=== PATIENT | male | born 1980 | race Hispanic/Latino ===

== ENCOUNTER 2022-03-11 08:55 | Emergency (ER) | payer OTHER, MEDICAID, SELFPAY ==
[2022-03-11] VITALS (8 sets, daily range): BP systolic 178–209; BP diastolic 99–123; PULSE 77–110; RESP 10–18; TEMP 37.2; O2SAT 93–98; BMI 30.4
--- NOTE | 2022-03-11 09:04 | ED_ITS ---
HPI - SOB/Dyspnea General Chief Complaint: Shortness of Breath/Dyspnea Stated Complaint: SOB- steroids/antibiotics not working. x 3 weeks Time Seen by Provider: 03/11/22 08:57 History of Present Illness HPI Narrative: 42-year-old male smoker with no known chronic medical problems presents with ongoing wheeze, cough and shortness of breath. He had COVID earlier in the year but states he had a full resolution of symptoms which were mild at worst prior to developing the symptoms that brought him here today. 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 He has been to the walk-in clinic twice and is completed. Steroids, frequent use of bronchodilators as well as a course of antibiotics and has no improvement. He denies fever chills. He has had no runny nose or sore throat. He denies chest pain, recent travel, history of blood clot or known cancer. He denies nausea, vomiting or diarrhea. Patient has been taking OTC Bronkaid (Ephedrine) Related Data Previous Rx's Medication Instructions Recorded albuterol sulfate 90 mcg/actuation 2 puff INHALATION Q4-6H PRN #8.5 g 03/09/22 aerosol inhaler azithromycin 250 mg tablet See Rx Instructions PO .COMPLEX #6 03/09/22 tab inhalational spacing device #1 ea 03/09/22 ([facility]) prednisone 50 mg tablet 50 mg PO QAM 5 Days #5 tab 03/09/22 albuterol sulfate 90 mcg/actuation 2 puff INHALATION Q4H PRN #1 each 03/11/22 breath activated powder inhaler amlodipine 5 mg tablet 5 mg PO DAILY #30 tab 03/11/22 benzonatate 200 mg capsule 200 mg PO BID PRN #20 cap 03/11/22 prednisone 10 mg tablet See Rx Instructions .ROUTE 03/11/22 .COMPLEX #30 tab Allergies Allergy/AdvReac Type Severity Reaction Status Date / Time No Known Allergies Allergy Verified 03/11/22 10:13 Review of Systems Review of Systems Narrative: GENERAL: See HPI HEENT: See HPI RESPIRATORY: See HPI CARDIOVASCULAR: Denies chest pain, palpitations, orthopnea, edema, GASTROINTESTINAL: Denies nausea, vomiting, abdominal pain, diarrhea, constipation, melena. : Denies dysuria, frequency, incontinence, hematuria, urinary retention. MUSCULOSKELETAL: denies weakness, joint pain, or bony pain SKIN: Denies rash, skin lesions, or other NEUROLOGIC: Denies weakness, headache, numbness, change in speech, confusion, seizures, incoordination. PSYCHIATRIC: No concerning psychosocial issues. 12 point review of systems is negative except for those stated above Patient History Social History Smoking Status: Current every day smoker Smoking Status: Current every day smoker Exam Narrative Exam Narrative: GENERAL: [42 year old patient appears stated age. Well-developed patient, in mild distress. HEAD: Atraumatic. Normocephalic. EYES: Pupils equal round and reactive. Extraocular motions intact. No scleral icterus. No injection or drainage. ENT: Nose without bleeding, purulent drainage. Throat without erythema, tonsillar hypertrophy or exudate. Airway patent. NECK: Trachea midline. Non tender CARDIOVASCULAR: Tachycardic but regular rhythm without murmurs, gallops, or rubs. RESPIRATORY: Expiratory wheeze in all [place], no rales or rhonchi GASTROINTESTINAL: Abdomen soft, non-tender, nondistended. EXTREMITIES: No edema or joint tenderness. BACK: Nontender without deformity or crepitance. No flank tenderness. NEURO: AOx3. SKIN: No rash or erythema of visible areas Initial Vital Signs Initial Vital Signs: Vital Signs Temperature 98.9 F 03/11/22 09:13 Pulse Rate 110 H 03/11/22 09:13 Respiratory Rate 16 03/11/22 09:13 Blood Pressure 189/123 H 03/11/22 09:13 Pulse Oximetry 94 03/11/22 09:13 Course Orders Ordered: Discontinued Medications Albuterol (Albuterol 2.5 Mg/3 Ml Neb (Adult)) 5 mg INH NOW ONE Stop: 03/11/22 10:18 Last Admin: 03/11/22 10:20 Dose: 5 mg Documented by: CTR.[email or web address] Albuterol/Ipratropium (Albuterol/Ipratropium 3 Ml Ampul) 3 ml INH NOW ONE Stop: 03/11/22 10:07 Last Admin: 03/11/22 10:12 Dose: 3 ml Documented by: CTR.[email or web address] Sodium Chloride (Normal Saline 0.9%) 1,000 mls @ 1,000 mls/hr IV BOLUS ONE Stop: 03/11/22 10:41 Last Infusion: 03/11/22 10:56 Dose: 0 mls/hr Documented by: Admin: 03/11/22 09:49 Dose: 1,000 mls/hr Documented by: PAVEL Methylprednisolone (Methylprednisolone 125 Mg/2 Ml Vial) 125 mg IV NOW ONE Stop: 03/11/22 09:43 Last Admin: 03/11/22 09:49 Dose: 125 mg Documented by: PAVEL Reevaluation(s) Reevaluation #1: significant improvement after above-stated therapies. Patient does not have a spacer at home, RT to provide Vital Signs Vital signs: Vital Signs - 8 hr 03/11/22 09:13 03/11/22 09:25 03/11/22 09:30 Temperature 98.9 F Pulse Rate 110 H 98 H 91 H Respiratory Rate 16 13 12 Blood Pressure 189/123 H Pulse Oximetry 94 95 93 03/11/22 09:51 03/11/22 10:00 03/11/22 10:12 Temperature Pulse Rate 77 81 Respiratory Rate 14 18 Blood Pressure 209/99 H 189/102 H Pulse Oximetry 94 93 95 03/11/22 10:21 03/11/22 10:30 Temperature Pulse Rate 79 Respiratory Rate 10 L Blood Pressure 178/101 H Pulse Oximetry 98 96 MDM - SOB/Dyspnea Lab Data Result diagrams: 03/11/22 09:11 03/11/22 09:11 Labs: Lab Results 03/11/22 03/11/22 03/11/22 Range/Units 09:11 09:11 09:11 WBC 8.7 (4.5-11.0) X10^3/uL RBC 5.07 (4.5-5.9) X10^6/uL Hgb 15.2 (13.5-17.5) g/dL Hct 44.6 (41-53) % MCV 88.1 (80-100) fL MCH 30.0 (26-34) PG MCHC 34.1 (30-36) % RDW 12.8 (11.6-14.8) % Plt Count 297 (150-400) X10^3/uL Neut % (Auto) 49.1 L (50-75) % Lymph % (Auto) 25.9 (25-40) % [place] % (Auto) 11.0 (3-14) % Eos % (Auto) 13.2 H (2-4) % Baso % (Auto) 0.8 (0-2) % Neut # (Auto) 4300 (4145-3314) /uL Lymph # (Auto) 2200 (5368-9789) /uL [place] # (Auto) 900 (0-900) /uL Eos # (Auto) 1100 H (0-450) /uL Baso # (Auto) 100 (0-100) /uL D-Dimer < 200 (<230) ng/mL Sodium 136 L (137-145) mmol/L Potassium 4.4 (3.4-5.1) mmol/L Chloride 106 (98-107) mmol/L Carbon Dioxide 24 (22-32) mmol/L BUN 13 (9-20) mg/dL Creatinine 0.99 (0.66-1.25) mg/dL Estimated GFR > 60 (>60) mL/min BUN/Creatinine Ratio 13.1 (6-22) Glucose 105 H (70-100) mg/dL Lactate (0.7-2.1) mmol/L Calcium 9.2 (8.4-10.2) mg/dL Magnesium 2.2 (1.6-2.3) mg/dL Total Bilirubin 0.9 (0.2-1.3) mg/dL AST 49 (17-59) IU/L ALT 62 H (<50) IU/L Alkaline Phosphatase 115 (38-126) U/L Total Creatine Kinase 139 (55-170) U/L CK-MB (CK-2) 1.90 (<2.37) ng/mL CK-MB (CK-2) Rel Index 1.4 L (1.5-5.0) % Troponin I < 0.012 (0.01-0.034) ng/mL NT-Pro-B Natriuret Pep 17 (<125) pg/mL Total Protein 7.8 (6.3-8.2) g/dL Albumin 4.4 (3.5-5.0) g/dL Globulin 3.4 (1.7-4.1) g/dL Albumin/Globulin Ratio 1.3 (1.0-2.8) Procalcitonin 0.06 (<0.5) ng/mL SARS-CoV-2 (PCR) (Negative) 03/11/22 03/11/22 Range/Units 09:11 09:35 WBC (4.5-11.0) X10^3/uL RBC (4.5-5.9) X10^6/uL Hgb (13.5-17.5) g/dL Hct (41-53) % MCV (80-100) fL MCH (26-34) PG MCHC (30-36) % RDW (11.6-14.8) % Plt Count (150-400) X10^3/uL Neut % (Auto) (50-75) % Lymph % (Auto) (25-40) % [place]go % (Auto) (3-14) % Eos % (Auto) (2-4) % Baso % (Auto) (0-2) % Neut # (Auto) (3375-7259) /uL Lymph # (Auto) (6878-0292) /uL [place]go # (Auto) (0-900) /uL Eos # (Auto) (0-450) /uL Baso # (Auto) (0-100) /uL D-Dimer (<230) ng/mL Sodium (137-145) mmol/L Potassium (3.4-5.1) mmol/L Chloride (98-107) mmol/L Carbon Dioxide (22-32) mmol/L BUN (9-20) mg/dL Creatinine (0.66-1.25) mg/dL Estimated GFR (>60) mL/min BUN/Creatinine Ratio (6-22) Glucose (70-100) mg/dL Lactate 1.2 (0.7-2.1) mmol/L Calcium (8.4-10.2) mg/dL Magnesium (1.6-2.3) mg/dL Total Bilirubin (0.2-1.3) mg/dL AST (17-59) IU/L ALT (<50) IU/L Alkaline Phosphatase (38-126) U/L Total Creatine Kinase (55-170) U/L CK-MB (CK-2) (<2.37) ng/mL CK-MB (CK-2) Rel Index (1.5-5.0) % Troponin I (0.01-0.034) ng/mL NT-Pro-B Natriuret Pep (<125) pg/mL Total Protein (6.3-8.2) g/dL Albumin (3.5-5.0) g/dL Globulin (1.7-4.1) g/dL Albumin/Globulin Ratio (1.0-2.8) Procalcitonin (<0.5) ng/mL SARS-CoV-2 (PCR) Negative (Negative) Imaging Data Chest x-ray: Radiologist's Impression: [address] [address] XRay Report Signed Patient: Matheus Roberts MR#: [id number] : 1980 Acct:[id number] Age/Sex: 42 / M Date of Service: 03/11/22 Loc: ED Accession Number: [id number] ?? Procedure: XR chest 2V Ordering Provider: Remy Forrester D.O. PROCEDURE:? XR CHEST 2V ? INDICATIONS:? SOB ? TECHNIQUE:? 2 views of the chest were acquired.? ? COMPARISON:? None. ? FINDINGS:? ? Surgical changes and devices:? None.? ? Lungs and pleura:? Lungs are clear.? No pleural effusions or pneumothorax.? ? Mediastinum:? Mediastinal contours are normal.? Heart size is normal.? ? Bones and chest wall:? No suspicious bony abnormalities.? Soft tissues appear unremarkable.? ? IMPRESSION:? No acute cardiopulmonary pathology. ? ? Dictated by: Rg Chauhan M.D. on 03/11/2022 at 9:41 ? ? Approved by: Rg Chauhan M.D. on 03/11/2022 at 9:42? MDM Narrative Medical decision making narrative: Multiple etiologies for patient's symptoms considered including: [Upper respiratory infection versus asthma exacerbation versus COPD versus CHF versus PE versus other Patient's symptoms improved over duration of stay with above-stated therapies. Findings and discharge diagnosis discussed with patient/family followed by verbalization of understanding Return precautions discussed with patient/family whom verbalize understanding. Discharge Plan Departure Patient Disposition: Home Clinical Impression: Shortness of Breath, HTN (hypertension) Instructions: DI for Cough -- Adult, DI for Shortness of Breath Activity Restrictions/Additional Instructions: *You have been diagnosed with [shortness of breath likely due to bronchospasm. As we discussed her history and physical exam are reassuring. Labs, chest x-ray and response to therapies are also quite reassuring and there is no evidence of pneumonia, COVID, blood clot. *What to do: *Please continue to take your regular medications as directed. [x] New medication prescriptions sent to your pharmacy: [ [place]] [ ] New medication written as a paper prescription [ ] No new medications given *Please follow up with your primary care provider in 2-3 days, call for an appointment. Let them know you were seen in the Emergency Department and that we ask that you be seen in follow up. We will electronically transmit a record of today's note if your PCP is in our system *If you do not have a primary care provider please contact the [facility] Resource line at [phone]. They will ask some questions about your medical history and help get you set up with a doctor in the community. *Return to Emergency Department if you should have any new, worsening or concerning symptoms, such as [fever greater than 101 F, shaking chills, worsening pain, persistent vomiting or other bothersome symptoms] Prescriptions: New prednisone 10 mg tablet See Rx Instructions .ROUTE .COMPLEX Qty: 30 0RF Rx Instructions: Day 1,2,3: 40mg PO Daily Day 4,5,6: 30mg PO Daily Day 7,8,9: 20mg PO Daily Day 10,11,12: 10mg PO Daily #30 benzonatate 200 mg capsule 200 mg PO BID PRN (Reason: cough) Qty: 20 0RF albuterol sulfate 90 mcg/actuation aerosol powdr breath activated 2 puff INHALATION Q4H PRN (Reason: shortness of breath or wheezing) Qty: 1 0RF Rx Instructions: administer with spacer amlodipine 5 mg tablet 5 mg PO DAILY Qty: 30 0RF No [facility] Spacer See Rx Instructions .MEDSUPPLY Qty: 1 0RF Rx Instructions: Please use with albuterol inhaler. prednisone 50 mg tablet 50 mg PO QAM 5 Days Qty: 5 0RF azithromycin 250 mg tablet See Rx Instructions PO .COMPLEX Qty: 6 0RF Rx Instructions: Take 2 tablets (500mg) by mouth today (day 1), then 1 tablet (250mg) by mouth for 4 days (days 2-5). Finish all of this medication. albuterol sulfate 90 mcg/actuation HFA aerosol inhaler 2 puff inhalation Q4-6H PRN (Reason: shortness of breath or wheezing) Qty: 8.5 2RF
--- NOTE | 2022-03-11 09:06 | DI.RAD.S_ITS ---
PROCEDURE: XR CHEST 2V INDICATIONS: SOB TECHNIQUE: 2 views of the chest were acquired. COMPARISON: None. FINDINGS: Surgical changes and devices: None. Lungs and pleura: Lungs are clear. No pleural effusions or pneumothorax. Mediastinum: Mediastinal contours are normal. Heart size is normal. Bones and chest wall: No suspicious bony abnormalities. Soft tissues appear unremarkable. IMPRESSION: No acute cardiopulmonary pathology. Dictated by: Rg Chauhan M.D. on 03/11/2022 at 9:41 Approved by: Rg Chauhan M.D. on 03/11/2022 at 9:42
[2022-03-11 09:21] LABS: Add Manual Diff / Slide Review NO; Basophils Absolute Auto 100 /uL (0-100); Basophils Percent Auto 0.8 % (0-2); Eosinophils Absolute Auto 1100 /uL (0-450); Eosinophils Percent Auto 13.2 % (2-4); Hematocrit 44.6 % (41-53); Hemoglobin 15.2 g/dL (13.5-17.5); Lymphocytes Absolute Auto 2200 /uL (1100-4500); Lymphocytes Percent Auto 25.9 % (25-40); Mean Corpuscular HGB Conc 34.1 % (30-36); Mean Corpuscular Volume 88.1 fL (80-100); Monocytes Absolute Auto 900 /uL (0-900); Neutrophils Absolute Auto 4300 /uL (1500-7000); Neutrophils Percent Auto 49.1 % (50-75); Platelet Count 297 X10^3/uL (150-400); Red Blood Cell Count 5.07 X10^6/uL (4.5-5.9); Red Cell Distribution Width 12.8 % (11.6-14.8); White Blood Cell Count 8.7 X10^3/uL (4.5-11.0)
[2022-03-11 09:32] LABS: Lactate (Lactic Acid) 1.2 mmol/L (0.7-2.1)
[2022-03-11 09:36] LABS: Alanine Aminotransferase 62 IU/L (<50); Albumin 4.4 g/dL (3.5-5.0); Albumin Globulin Ratio 1.3 (1.0-2.8); Alkaline Phosphatase 115 U/L (38-126); Aspartate Aminotransferase 49 IU/L (17-59); BUN Creatinine Ratio 13.1 (6-22); Bilirubin Total 0.9 mg/dL (0.2-1.3); Blood Urea Nitrogen 13 mg/dL (9-20); Calcium 9.2 mg/dL (8.4-10.2); Carbon Dioxide 24 mmol/L (22-32); Chloride 106 mmol/L (98-107); Creatine Kinase 139 U/L (55-170); Estimated Glomerular Filt Rate > 60 mL/min (>60); Globulin 3.4 g/dL (1.7-4.1); Glucose 105 mg/dL (70-100); HEMOLYSIS < 15 (0-50); Magnesium 2.2 mg/dL (1.6-2.3); Potassium 4.4 mmol/L (3.4-5.1); Sodium 136 mmol/L (137-145); Total Protein 7.8 g/dL (6.3-8.2)
[2022-03-11 09:44] LABS: D Dimer < 200 ng/mL (<230)
[2022-03-11 09:48] LABS: NT-proBNP (BNP-Adult 18+) 17 pg/mL (<125); Troponin I < 0.012 ng/mL (0.01-0.034)
[2022-03-11] MEDS: SODIUM CHLORIDE 0.9% 1,000 ML 1000 ML IV (09:49)
[2022-03-11] MEDS: methylPREDNISolone 125 MG/2 ML VIAL IV (09:49)
[2022-03-11 09:50] LABS: CKMB % Relative Index 1.4 % (1.5-5.0)
[2022-03-11 09:52] LABS: Procalcitonin 0.06 ng/mL (<0.5)
[2022-03-11 09:55] LABS: COVID19 -Nasal RAPID Negative (Negative)
[2022-03-11] MEDS: ALBUTEROL/IPRATROPIUM 3 ML AMPUL INH (10:12)
[2022-03-11] MEDS: ALBUTEROL 2.5 MG/3 ML NEB (ADULT) 5 MG INH (10:20)
== END 2022-03-11 11:23 | disposition home or self-care (01) ==
PROVIDERS: Emergency Provider Emergency Medicine
DX: R06.02 Shortness of breath (principal); I10 Essential (primary) hypertension; Z20.822 Contact with and (suspected) exposure to COVID-19
CPT/HCPCS: 36415; 71046; 80053; 82550; 82553; 83605; 83735; 83880; 84145; 84484; 85025; 85379; 87635; 93005; 94640; 96374; 99284; C9803; J2930; J7613

== ENCOUNTER 2022-05-01 23:49 | Emergency (ER) | payer OTHER, MEDICAID, SELFPAY ==
[2022-05-02] VITALS: BP 181/109; PULSE 105; RESP 22; TEMP 36.6; O2SAT 93
--- NOTE | 2022-05-02 00:03 | DI.RAD.S_ITS ---
PROCEDURE: XR CHEST 2V INDICATIONS: shortness of breath TECHNIQUE: 2 views of the chest were acquired. COMPARISON: [facility], CR, XR CHEST 2V, 03/11/2022, 8:56. FINDINGS: Surgical changes and devices: None. Lungs and pleura: Lungs are clear. No pleural effusions or pneumothorax. Mediastinum: Mediastinal contours are normal. Heart size is normal. Bones and chest wall: No suspicious bony abnormalities. Soft tissues appear unremarkable. IMPRESSION: 1. No acute cardiopulmonary disease. Dictated by: Silvano Meyer M.D. on 05/02/2022 at 2:29 Approved by: Silvano Meyer M.D. on 05/02/2022 at 2:29
[2022-05-02 00:09] VITALS: O2SAT 98
[2022-05-02] MEDS: ALBUTEROL 2.5 MG/3 ML NEB (ADULT) 5 MG INH (00:09)
[2022-05-02 00:17] LABS: COVID19 -Nasal RAPID Negative (Negative)
[2022-05-02] MEDS: predniSONE 20 MG TABLET 60 MG PO (00:20)
[2022-05-02] MEDS: ALBUTEROL HFA PREPACK 1 BOX MISC (00:20)
--- NOTE | 2022-05-02 00:30 | PC.NURSE ---
Reports having issues since having COVID three months ago. Will get short of breath with exertion/allergen exposures. Sometimes wake up feeling like someone is choking me. Has been trying to get primary care set up to help manage symptoms.
[2022-05-02 00:58] VITALS: BP 129/95; PULSE 102; O2SAT 96
--- NOTE | 2022-05-02 01:03 | ED.SOB ---
HPI - SOB/Dyspnea General Chief Complaint: Shortness of Breath/Dyspnea Stated Complaint: SOB Time Seen by Provider: 05/02/22 00:42 Source: patient Mode of arrival: Ambulatory Limitations: no limitations History of Present Illness HPI Narrative: Patient complains of shortness of breath and wheezing and cough today. Patient states has not been the same since he had COVID back in February of this year. Has had daily cough. Has had occasional episodes of dyspnea with wheezing. Was seen here last month for the same. Improved with breathing treatment. Also with steroid pack. Denies prior history of lung disease. No history of blood clots in legs or lungs. Patient is very active. Related Data Previous Rx's Medication Instructions Recorded albuterol sulfate 90 mcg/actuation 2 puff inhalation Q4-6H PRN 03/09/22 aerosol inhaler shortness of breath or wheezing #8.5 grams azithromycin 250 mg tablet See Rx Instructions PO .COMPLEX #6 03/09/22 tabs inhalational spacing device #1 ea 03/09/22 ([facility] spacer) albuterol sulfate 90 mcg/actuation 2 puff inhalation Q4H PRN 03/11/22 breath activated powder inhaler shortness of breath or wheezing #1 ea amlodipine 5 mg tablet 5 mg PO DAILY #30 tabs 03/11/22 benzonatate 200 mg capsule 200 mg PO BID PRN cough #20 caps 03/11/22 prednisone 10 mg tablet See Rx Instructions .Route 03/11/22 .COMPLEX #30 tabs methylprednisolone 4 mg tablets in See Rx Instructions PO .COMPLEX 05/02/22 a dose pack (Medrol (Angel)) #21 ea Allergies Allergy/AdvReac Type Severity Reaction Status Date / Time No Known Allergies Allergy Verified 03/11/22 10:13 Review of Systems Review of Systems Narrative: GENERAL: Denies chills, fatigue, malaise, fever, sweats. HEENT: Denies sinus pain, ear pain, sore throat RESPIRATORY: Positive for dyspnea, cough CARDIOVASCULAR: Denies chest pain, palpitations GASTROINTESTINAL: Denies nausea, vomiting, abdominal pain : Denies dysuria, frequency, hematuria MUSCULOSKELETAL: denies muscle or bony pain SKIN: Denies rash, skin lesions NEUROLOGIC: Denies weakness, numbness ROS Unobtainable: All systems reviewed & are unremarkable except as noted in HPI and below Patient History Social History Smoking Status: Current every day smoker Smoking Status: Current every day smoker alcohol intake frequency: 0-2 drinks per day Substance Use Type: does not use Exam Narrative Exam Narrative: GENERAL: in no distress, not toxic not dyspneic HEAD: Normocephalic. EYES: Pupils equal round No scleral icterus. NECK: Trachea midline. CARDIOVASCULAR: Regular rate and rhythm without murmurs RESPIRATORY: Clear to auscultation. Breath sounds equal bilaterally. No wheezes, rales, or rhonchi. Speaking full sentences. Exam was done after breathing treatment. Patient feels much better. NEURO: AOx4. SKIN: Warm and dry PSYCH: Not anxious, is cooperative Initial Vital Signs Initial Vital Signs: Vital Signs Temperature 97.8 F 05/02/22 00:00 Pulse Rate 105 H 05/02/22 00:00 Respiratory Rate 22 05/02/22 00:00 Blood Pressure 181/109 H 05/02/22 00:00 Pulse Oximetry 93 05/02/22 00:00 Oxygen Delivery Method 05/02/22 00:00 Course Course Course Narrative: No new issues during course of stay Orders Ordered: ED Orders 05/01/22 23:55 COVID19 -Nasal RAPID/Pre-Proc Stat 05/01/22 23:59 RT Consult Eval and Treat NOW 05/02/22 00:03 XR chest 2V Stat Discontinued Medications Albuterol (Albuterol 2.5 Mg/3 Ml Neb (Adult)) 5 mg INH NOW ONE Stop: 05/02/22 00:04 Last Admin: 05/02/22 00:09 Dose: 5 mg Documented By: LORENA Albuterol (Albuterol Hfa Prepack) 1 box MISC SEEINSTR ONE Stop: 05/02/22 00:19 Last Admin: 05/02/22 00:20 Dose: 1 box Documented By: LEO Prednisone (Prednisone 20 Mg Tablet) 60 mg PO NOW ONE Stop: 05/02/22 00:17 Last Admin: 05/02/22 00:20 Dose: 60 mg Documented By: LEO Prednisone (Prednisone 20 Mg Tablet) 40 mg PO NOW ONE Stop: 05/02/22 01:01 Reevaluation(s) Reevaluation #1: Patient feels much better after breathing treatments. Blood pressure improved significantly 129/95. This was similar to previous visit as well. Had high blood pressure at that time. Return precautions reviewed with him. He does desire steroid pack as it has helped him in the past. Time: 01:13 Vital Signs Vital signs: Vital Signs - 8 hr 05/02/22 00:00 05/02/22 00:09 05/02/22 00:58 Temperature 97.8 F Pulse Rate 105 H 102 H Respiratory Rate 22 Blood Pressure 181/109 H 129/95 H Pulse Oximetry 93 98 96 Oxygen Delivery Method Room Air Room Air Room Air Oxygen Flow Rate 0 MDM - SOB/Dyspnea Differential Diagnosis Differential diagnosis: Likely acute exacerbation of chronic obstructive airways disease, community acquired pneumonia, asthma with exacerbation and other (Acute bronchitis) Lab Data Labs: Lab Results 05/01/22 Range/Units 23:55 SARS-CoV-2 (PCR) Negative (Negative) Imaging Data Chest x-ray: My Impression: No acute process. Unchanged from previous chest x-ray last month [facility] Narrative Medical decision making narrative: Appropriate for discharge home. Blood pressure improved at time of discharge. 129/95 after breathing treatment. 96% room air. Clear lung sounds. Tachycardia likely pre arrival due to exacerbation. Tachycardia at discharge likely due albuterol nebulizer. Return precautions reviewed patient. Not toxic discharge. Patient did not want wait for results of x-ray. Primary care referral given. Discharge Plan Departure Patient Disposition: Home Clinical Impression: Chronic dyspnea, Bronchitis Instructions: DI for Cough -- Adult, DI for Acute Bronchitis Activity Restrictions/Additional Instructions: See family doctor in a week for recheck. Call provided primary care referral phone number to establish family doctor. Call [phone]. Use provided inhaler 2 puffs every 4 hours as needed for cough or wheezing. Your symptoms are likely lingering from your COVID infections earlier this year. Do not smoke cigarettes. Return if worse if any questions or concerns. Continue steroid pack tomorrow. Prescriptions: New methylprednisolone [Medrol (Angel)] 4 mg tablets,dose pack See Rx Instructions .ROUTE .COMPLEX Qty: 21 0RF Rx Instructions: orally per package directions No Action (DME) Rosalva [facility] Spacer See Rx Instructions .MEDSUPPLY Qty: 1 0RF Rx Instructions: Please use with albuterol inhaler. azithromycin 250 mg tablet See Rx Instructions PO .COMPLEX Qty: 6 0RF Rx Instructions: Take 2 tablets (500mg) by mouth today (day 1), then 1 tablet (250mg) by mouth for 4 days (days 2-5). Finish all of this medication. albuterol sulfate 90 mcg/actuation HFA aerosol inhaler 2 puff inhalation Q4-6H PRN (Reason: shortness of breath or wheezing) Qty: 8.5 2RF prednisone 10 mg tablet See Rx Instructions .ROUTE .COMPLEX Qty: 30 0RF Rx Instructions: Day 1,2,3: 40mg PO Daily Day 4,5,6: 30mg PO Daily Day 7,8,9: 20mg PO Daily Day 10,11,12: 10mg PO Daily #30 benzonatate 200 mg capsule 200 mg PO BID PRN (Reason: cough) Qty: 20 0RF albuterol sulfate 90 mcg/actuation aerosol powdr breath activated 2 puff INHALATION Q4H PRN (Reason: shortness of breath or wheezing) Qty: 1 0RF Rx Instructions: administer with spacer amlodipine 5 mg tablet 5 mg PO DAILY Qty: 30 0RF Visit Report Forms: Patient Portal/API
== END 2022-05-02 01:11 | disposition home or self-care (01) ==
PROVIDERS: Emergency Provider Emergency Medicine
DX: J20.9 Acute bronchitis, unspecified (principal); R06.00 Dyspnea, unspecified; R05.9 Cough, unspecified; Z86.16 Personal history of COVID-19; Z20.822 Contact with and (suspected) exposure to COVID-19
CPT/HCPCS: 71046; 87635; 94640; 99283; 99284; C9803; J7613

== ENCOUNTER 2022-07-14 02:38 | Emergency (ER) | payer OTHER, MEDICAID, SELFPAY ==
[2022-07-14] VITALS (17 sets, daily range): BP systolic 161–184; BP diastolic 85–115; PULSE 102–124; RESP 16–24; TEMP 37; O2SAT 91–98
[2022-07-14] MEDS: ALBUTEROL/IPRATROPIUM 3 ML AMPUL INH ×3 (03:08→04:16)
[2022-07-14 03:13] LABS: COVID19 -Nasal RAPID Negative (Negative)
[2022-07-14] MEDS: ALBUTEROL 2.5 MG/3 ML NEB (ADULT) INH ×2 (03:25→04:27)
--- NOTE | 2022-07-14 04:14 | ED_ITS ---
HPI - General Adult <Anthony Shannon DO - Last Filed: 07/14/22 19:56> General Chief complaint: Shortness of Breath/Dyspnea Stated complaint: sob Time Seen by Provider: 07/14/22 03:01 Source: patient Mode of arrival: Ambulatory Limitations: no limitations History of Present Illness HPI narrative: Patient is a 42-year-old male. Does have a smoking history but has not smoked in several months. Patient several months ago had COVID-19. Since that time he has had issues with shortness of breath and wheezing and shortness of breath on exertion. He has been seen in the emergency department and also the walk-in clinic multiple times for these symptoms. He has an albuterol inhaler at home. He states the albuterol works for very short period of time but then his symptoms returned. He is using his albuterol every day and multiple times a day. He also has been on steroids. He states the steroids help his symptoms tremendously however this soon as he stops steroids symptoms return. His last course of steroids and it yesterday and as the day went on yesterday he started have wheezing and shortness of breath. No chest pain but does describe some chest tightness. He is coughing. He has back pain associated with the cough. No abdominal pain. No fevers. He is scheduled to see a primary doctor in approximately 1 week from now. He is out of his albuterol. Related Data Previous Rx's Medication Instructions Recorded azithromycin 250 mg tablet See Rx Instructions PO .COMPLEX #6 03/09/22 tabs inhalational spacing device #1 ea 03/09/22 (Rosalva Huizar [facility] spacer) methylprednisolone 4 mg tablets in See Rx Instructions PO .COMPLEX 05/02/22 a dose pack (Medrol (Angel)) #21 ea albuterol sulfate 90 mcg/actuation 2 puff inhalation Q4-6H PRN 05/27/22 aerosol inhaler shortness of breath or wheezing #8.5 grams amlodipine 5 mg tablet 5 mg PO DAILY #30 tabs 07/02/22 benzonatate 200 mg capsule 200 mg PO BID PRN cough #20 caps 07/02/22 prednisone 10 mg tablet See Rx Instructions .Route 07/03/22 .COMPLEX #30 tabs fluticasone propionate 110 1 puff inhalation BID #12 grams 07/12/22 mcg/actuation HFA aerosol inhaler (Flovent HFA) albuterol sulfate 90 mcg/actuation 2 puff inhalation Q4-6H PRN 07/14/22 aerosol inhaler shortness of breath or wheezing #8.5 grams fluticasone 100 mcg-salmeterol 50 1 inh inhalation BID #60 ea 07/14/22 mcg/dose blistr powdr for inhalation (Advair Diskus) prednisone 20 mg tablet 20 mg PO DAILY #30 tabs 07/14/22 Allergies Allergy/AdvReac Type Severity Reaction Status Date / Time No Known Allergies Allergy Verified 07/14/22 02:46 Review of Systems <Anthony Shannon DO - Last Filed: 07/14/22 19:56> Review of Systems ROS Unobtainable: All systems reviewed & are unremarkable except as noted in HPI and below Patient History <DO Carolyn Brooks Last Filed: 07/14/22 19:56> Medical History COVID-19 Social History Smoking Status: Current every day smoker Smoking Status: Current every day smoker alcohol intake frequency: 0-2 drinks per day Substance Use Type: does not use Exam <DO Carolyn Brooks Last Filed: 07/14/22 19:56> Initial Vital Signs Initial Vital Signs: Vital Signs Temperature 98.6 F 07/14/22 02:46 Pulse Rate 102 H 07/14/22 02:46 Respiratory Rate 24 07/14/22 02:46 Blood Pressure 180/115 H 07/14/22 02:46 Pulse Oximetry 92 07/14/22 02:46 Oxygen Delivery Method 07/14/22 02:46 Const General: cooperative, comfortable, well developed and No ill appearing HENMT Head: normal to inspection and normocephalic Resp Effort & Inspection: labored and tachypneic Auscultation: diminished lung sounds, rhonchi and wheezes Cardio Rate: tachycardic Rhythm: regular rhythm GI Inspection: normal to inspection Neuro General: patient alert, patient awake and moves all extremities Cognition: normal cognition Speech: speech normal Extrem General: normal to inspection and capillary refill normal Psych Appearance: grossly normal and well kempt <Kaylen Mullen DO - Last Filed: 07/15/22 09:05> Initial Vital Signs Initial Vital Signs: Vital Signs Temperature 98.6 F 07/14/22 02:46 Pulse Rate 102 H 07/14/22 02:46 Respiratory Rate 24 07/14/22 02:46 Blood Pressure 180/115 H 07/14/22 02:46 Pulse Oximetry 92 07/14/22 02:46 Oxygen Delivery Method 07/14/22 02:46 Course <Anthony Shannon DO - Last Filed: 07/14/22 19:56> Orders Ordered: Discontinued Medications Albuterol (Albuterol 2.5 Mg/3 Ml Neb (Adult)) 2.5 mg INH NOW ONE Stop: 07/14/22 03:21 Last Admin: 07/14/22 03:25 Dose: 2.5 mg Documented By: NIKIA Albuterol (Albuterol 2.5 Mg/3 Ml Neb (Adult)) 2.5 mg INH NOW ONE Stop: 07/14/22 04:24 Last Admin: 07/14/22 04:27 Dose: 2.5 mg Documented By: NIKIA Albuterol (Albuterol 2.5 Mg/3 Ml Neb (Adult)) 20 mg INH NOW ONE Stop: 07/14/22 05:14 Last Admin: 07/14/22 05:22 Dose: 20 mg Documented By: NIKIA Albuterol/Ipratropium (Albuterol/Ipratropium 3 Ml Ampul) 3 ml INH NOW ONE Stop: 07/14/22 03:02 Last Admin: 07/14/22 03:08 Dose: 3 ml Documented By: NIKIA Albuterol/Ipratropium (Albuterol/Ipratropium 3 Ml Ampul) 3 ml INH NOW ONE Stop: 07/14/22 03:20 Last Admin: 07/14/22 03:26 Dose: 3 ml Documented By: NKIIA Albuterol/Ipratropium (Albuterol/Ipratropium 3 Ml Ampul) 3 ml INH NOW ONE Stop: 07/14/22 04:14 Last Admin: 07/14/22 04:16 Dose: 3 ml Documented By: NIKIA Magnesium Sulfate (Magnesium Sulfate) 2 gm in 50 mls @ 25 mls/hr IV NOW ONE Stop: 07/14/22 06:39 Last Infusion: 07/14/22 06:24 Dose: 0 mls/hr Documented By: YURIY Co-signed By: KATIE Admin: 07/14/22 04:59 Dose: 25 mls/hr Documented By: YURIY Co-signed By: KATIE Methylprednisolone (Methylprednisolone 125 Mg/2 Ml Vial) 125 mg IV NOW ONE Stop: 07/14/22 04:41 Last Admin: 07/14/22 04:51 Dose: 125 mg Documented By: YURIY Prednisone (Prednisone 20 Mg Tablet) 20 mg PO NOW ONE Stop: 07/14/22 04:14 Last Admin: 07/14/22 04:22 Dose: 20 mg Documented By: YURIY Vital Signs Vital signs: Vital Signs - 8 hr 07/14/22 02:46 07/14/22 03:09 07/14/22 03:27 Temperature 98.6 F Pulse Rate 102 H 108 H 106 H Respiratory Rate 24 18 16 Blood Pressure 180/115 H Pulse Oximetry 92 94 Oxygen Delivery Method Room Air Room Air Room Air 07/14/22 04:18 07/14/22 04:28 07/14/22 05:01 Temperature Pulse Rate 116 H 115 H 113 H Respiratory Rate 18 16 Blood Pressure Pulse Oximetry 95 94 Oxygen Delivery Method Room Air Room Air 07/14/22 05:30 07/14/22 06:00 07/14/22 06:28 Temperature Pulse Rate 112 H 113 H Respiratory Rate Blood Pressure 179/94 H Pulse Oximetry 98 97 Oxygen Delivery Method 07/14/22 06:28 07/14/22 06:30 07/14/22 06:30 Temperature Pulse Rate 118 H 119 H Respiratory Rate Blood Pressure 167/91 H Pulse Oximetry 96 96 Oxygen Delivery Method <Kaylen Mullen, - Last Filed: 07/15/22 09:05> Orders Ordered: Discontinued Medications Albuterol (Albuterol 2.5 Mg/3 Ml Neb (Adult)) 2.5 mg INH NOW ONE Stop: 07/14/22 03:21 Last Admin: 07/14/22 03:25 Dose: 2.5 mg Documented By: DEIDREF Albuterol (Albuterol 2.5 Mg/3 Ml Neb (Adult)) 2.5 mg INH NOW ONE Stop: 07/14/22 04:24 Last Admin: 07/14/22 04:27 Dose: 2.5 mg Documented By: NIKIA Albuterol (Albuterol 2.5 Mg/3 Ml Neb (Adult)) 20 mg INH NOW ONE Stop: 07/14/22 05:14 Last Admin: 07/14/22 05:22 Dose: 20 mg Documented By: NIKIA Albuterol/Ipratropium (Albuterol/Ipratropium 3 Ml Ampul) 3 ml INH NOW ONE Stop: 07/14/22 03:02 Last Admin: 07/14/22 03:08 Dose: 3 ml Documented By: NIKIA Albuterol/Ipratropium (Albuterol/Ipratropium 3 Ml Ampul) 3 ml INH NOW ONE Stop: 07/14/22 03:20 Last Admin: 07/14/22 03:26 Dose: 3 ml Documented By: NIKIA Albuterol/Ipratropium (Albuterol/Ipratropium 3 Ml Ampul) 3 ml INH NOW ONE Stop: 07/14/22 04:14 Last Admin: 07/14/22 04:16 Dose: 3 ml Documented By: NIKIA Magnesium Sulfate (Magnesium Sulfate) 2 gm in 50 mls @ 25 mls/hr IV NOW ONE Stop: 07/14/22 06:39 Last Infusion: 07/14/22 06:24 Dose: 0 mls/hr Documented By: YURIY Co-signed By: KATIE Admin: 07/14/22 04:59 Dose: 25 mls/hr Documented By: YURIY Co-signed By: KATIE Methylprednisolone (Methylprednisolone 125 Mg/2 Ml Vial) 125 mg IV NOW ONE Stop: 07/14/22 04:41 Last Admin: 07/14/22 04:51 Dose: 125 mg Documented By: YURIY Prednisone (Prednisone 20 Mg Tablet) 20 mg PO NOW ONE Stop: 07/14/22 04:14 Last Admin: 07/14/22 04:22 Dose: 20 mg Documented By: YURIY Vital Signs Vital signs: Vital Signs - 8 hr 07/14/22 02:46 07/14/22 03:09 07/14/22 03:27 Temperature 98.6 F Pulse Rate 102 H 108 H 106 H Respiratory Rate 24 18 16 Blood Pressure 180/115 H Pulse Oximetry 92 94 Oxygen Delivery Method Room Air Room Air Room Air 07/14/22 04:18 07/14/22 04:28 07/14/22 05:01 Temperature Pulse Rate 116 H 115 H 113 H Respiratory Rate 18 16 Blood Pressure Pulse Oximetry 95 94 Oxygen Delivery Method Room Air Room Air 07/14/22 05:30 07/14/22 06:00 07/14/22 06:28 Temperature Pulse Rate 112 H 113 H Respiratory Rate Blood Pressure 179/94 H Pulse Oximetry 98 97 Oxygen Delivery Method 07/14/22 06:28 07/14/22 06:30 07/14/22 06:30 Temperature Pulse Rate 118 H 119 H Respiratory Rate Blood Pressure 167/91 H Pulse Oximetry 96 96 Oxygen Delivery Method Medical Decision Making <Anthony Shannon, DO - Last Filed: 07/14/22 19:56> Lab Data Labs: Lab Results 07/14/22 Range/Units 02:40 SARS-CoV-2 (PCR) Negative (Negative) MDM Narrative Medical decision making narrative: Patient has been having reactive airway disease issues for several weeks/months. He is scheduled to see his primary doctor in approximately 1 week. Upon arrival patient was tachypneic and wheezing and this was after he had received nebs prior to my evaluation. He was observed for short period of time and whe ezing returned. Was given magnesium. IV and oral steroids. And continuous nebulizers. He is feeling somewhat better. My discussion with the patient if you were to be discharged home would be to refill his albuterol. Will start him on Advair. Will also give a prescription for steroids to take as needed. Had a discussion with him regarding this of how he can take this prednisone. I think it is important that he follows up with his primary doctor most likely will need to follow-up with pulmonology. <Kaylen Mullen, DO - Last Filed: 07/15/22 09:05> Lab Data Labs: Lab Results 07/14/22 Range/Units 02:40 SARS-CoV-2 (PCR) Negative (Negative) MDM Narrative Medical decision making narrative: Patient has been having reactive airway disease issues for several weeks/months. He is scheduled to see his primary doctor in approximately 1 week. Upon arrival patient was tachypneic and wheezing and this was after he had received nebs prior to my evaluation. He was observed for short period of time and wheezing returned. Was given magnesium. IV and oral steroids. And continuous nebulizers. He is feeling somewhat better. My discussion with the patient if you were to be discharged home would be to refill his albuterol. Will start him on Advair. Will also give a prescription for steroids to take as needed. Had a discussion with him regarding this of how he can take this prednisone. I think it is important that he follows up with his primary doctor most likely will need to follow-up with pulmonology. 07/14/22 Mank: Patient was signed out to myself by Dr. Shannon. Patient seen and evaluated by myself. Patient has been having reactive airway type issues for several weeks to months. He has a follow-up in 1 week. Patient was starting to improve but wheezing return so received IV medications including magnesium continuous nebulizer. To myself to be monitored to make sure that he is improving and does not require admission. Discussed that patient is going to be started on Advair if he is able to be discharged today. Patient seen at 7:53 a.m. patient is clear on exam, no respiratory distress at this time full sentences. Discussed his findings so far today would like to monitor little bit longer and make sure that he is continuing to stay stable. Patient is agreeable to this. He also notes that he quit smoking in the last month, he quit using marijuana about 4 months ago and that he does have some seasonal allergies taking Kelin [id number] daily. Patient was reassessed again at 9:00 a.m. still continuing to feel much improved and feels that he is safe to return home. Discharge Plan Departure Patient Disposition: Home Clinical Impression: Bronchitis with acute wheezing Activity Restrictions/Additional Instructions: It is important that you continue your blood pressure medicines. It is also important that you keep your scheduled appointment with your primary doctor. A refill for your albuterol was sent to [facility]. We will also start you on a medicine called Advair. A prescription for this was sent to [facility] as well. I will also give you prescription for prednisone. These are 20 mg tablets. You can take this medication 1 time a day like we discussed. If you find that you take this medication for 7 days in a row or longer you do need to do an additional 7 days at 1/2 tablet like we discussed. Return to the emergency department for any new or worsening symptoms. Prescriptions: New prednisone 20 mg tablet 20 mg PO DAILY Qty: 30 0RF albuterol sulfate 90 mcg/actuation HFA aerosol inhaler 2 puff inhalation Q4-6H PRN (Reason: shortness of breath or wheezing) Qty: 8.5 3RF fluticasone propion-salmeterol [Advair Diskus] 100-50 mcg/dose blister with device 1 inh inhalation BID Qty: 60 0RF No Action (DME) Rosalva Huizar [facility] Spacer See Rx Instructions .MEDSUPPLY Qty: 1 0RF Rx Instructions: Please use with albuterol inhaler. azithromycin 250 mg tablet See Rx Instructions PO .COMPLEX Qty: 6 0RF Rx Instructions: Take 2 tablets (500mg) by mouth today (day 1), then 1 tablet (250mg) by mouth for 4 days (days 2-5). Finish all of this medication. benzonatate 200 mg capsule 200 mg PO BID PRN (Reason: cough) Qty: 20 0RF amlodipine 5 mg tablet 5 mg PO DAILY Qty: 30 0RF albuterol sulfate 90 mcg/actuation HFA aerosol inhaler 2 puff inhalation Q4-6H PRN (Reason: shortness of breath or wheezing) Qty: 8.5 2RF prednisone 10 mg tablet See Rx Instructions .ROUTE .COMPLEX Qty: 30 0RF Rx Instructions: Day 1,2,3: 40mg PO Daily Day 4,5,6: 30mg PO Daily Day 7,8,9: 20mg PO Daily Day 10,11,12: 10mg PO Daily #30 fluticasone propionate [Flovent HFA] 110 mcg/actuation HFA aerosol inhaler 1 puff inhalation BID Qty: 12 6RF methylprednisolone [Medrol (Angel)] 4 mg tablets,dose pack See Rx Instructions .ROUTE .COMPLEX Qty: 21 0RF Rx Instructions: orally per package directions Referrals: Miscellaneous,Doctor, MD [Primary Care Provider] - Visit Report Forms: Patient Portal/API
[2022-07-14] MEDS: predniSONE 20 MG TABLET PO (04:22)
[2022-07-14] MEDS: methylPREDNISolone 125 MG/2 ML VIAL IV (04:51)
[2022-07-14] MEDS: MAGNESIUM SULFATE 2 GM/50 ML PIGGYBACK IV (04:59)
[2022-07-14] MEDS: ALBUTEROL 2.5 MG/3 ML NEB (ADULT) 20 MG INH (05:22)
== END 2022-07-14 09:23 | disposition home or self-care (01) ==
PROVIDERS: Emergency Medicine; Emergency Provider Emergency Medicine
DX: J20.9 Acute bronchitis, unspecified (principal); R06.2 Wheezing; Z20.822 Contact with and (suspected) exposure to COVID-19
CPT/HCPCS: 36415; 87635; 94640; 96361; 96374; 99284; C9803; J2930; J3475; J7613

== ENCOUNTER → 2023-07-29 09:04 | Outpatient (CLI) | payer OTHER, MEDICAID, SELFPAY ==
[2023-07-29 10:48] LABS: Add Manual Diff / Slide Review NO; Basophils Absolute Auto 0 /uL (0-100); Basophils Percent Auto 0.7 % (0-2); Eosinophils Absolute Auto 500 /uL (0-450); Eosinophils Percent Auto 7.3 % (2-4); Hematocrit 43.9 % (41-53); Hemoglobin 15.2 g/dL (13.5-17.5); Lymphocytes Absolute Auto 1900 /uL (1100-4500); Lymphocytes Percent Auto 27.7 % (25-40); Mean Corpuscular HGB Conc 34.7 % (30-36); Mean Corpuscular Hemoglobin 30.8 PG (26-34); Mean Corpuscular Volume 88.8 fL (80-100); Monocytes Absolute Auto 600 /uL (0-900); Monocytes Percent Auto 8.4 % (3-14); Neutrophils Absolute Auto 3800 /uL (1500-7000); Neutrophils Percent Auto 55.9 % (50-75); Platelet Count 266 X10^3/uL (150-400); Red Blood Cell Count 4.94 X10^6/uL (4.5-5.9); Red Cell Distribution Width 12.7 % (11.6-14.8); White Blood Cell Count 6.9 X10^3/uL (4.5-11.0)
[2023-07-29 11:07] LABS: Alanine Aminotransferase 51 IU/L (<50); Albumin 4.3 g/dL (3.5-5.0); Albumin Globulin Ratio 1.4 (1.0-2.8); Alkaline Phosphatase 100 U/L (38-126); Aspartate Aminotransferase 36 IU/L (17-59); BUN Creatinine Ratio 12.9 (6-22); Bilirubin Total 0.7 mg/dL (0.2-1.3); Blood Urea Nitrogen 11 mg/dL (9-20); Calcium 9.4 mg/dL (8.4-10.2); Carbon Dioxide 22 mmol/L (22-32); Chloride 102 mmol/L (98-107); Cholesterol 268 mg/dL (140-199); Estimated Glomerular Filt Rate > 60 mL/min (>60); Glucose 94 mg/dL (70-100); HDL Cholesterol 42 mg/dL (40-60); HEMOLYSIS < 15 (0-50); LDL Cholesterol Calculated 177 mg/dL (<100); Potassium 4.5 mmol/L (3.4-5.1); Sodium 134 mmol/L (137-145); Total Protein 7.3 g/dL (6.3-8.2); Triglycerides 246 mg/dL (35-150)
[2023-07-29 11:34] LABS: TSH w/ Reflex to FT4 1.23 uIU/mL (0.47-4.68)
== END ==
PROVIDERS: PCP Family Medicine; Referring Provider Family Medicine; Visit Provider Family Medicine
DX: Z00.00 Encounter for general adult medical examination without abnormal findings (principal); J45.40 Moderate persistent asthma, uncomplicated
CPT/HCPCS: 36415; 80053; 80061; 84443; 85025

== ENCOUNTER 2023-10-23 11:11 | Day surgery (SDC) | payer OTHER, MEDICAID, SELFPAY ==
[2023-10-23 11:23] VITALS: BMI 29.5
[2023-10-23 11:30] VITALS: BP 152/96; PULSE 87; RESP 17; TEMP 36.4; O2SAT 97
[2023-10-23] MEDS: LACTATED RINGERS 1,000 ML 42 ML IV (11:37)
--- NOTE | 2023-10-23 12:20 | P.HP_ITS ---
History of Present Illness History of Present Illness Date Patient Seen: 10/23/23 Time Patient Seen: 12:20 Chief complaint: Colonoscopy Narrative: Rahul is a 43-year-old man who is here for a screening colonoscopy. He has never had a colonoscopy before. No known family history of colon cancer but he is adopted and does not know his family history. [facility] Medical History Hyperlipidemia Psoriasis Hypertension [facility] care Asthma COVID-19 Social History household members: spouse Smoking Status: Former smoker Tobacco: How many years used: 6 Smokeless tobacco user: chewing tobacco (current ) quit status: quit date established alcohol intake: current substance use type: former substance user (Marijuana ) and marijuana (quit March 2022 ) Meds Home Medications and Allergies Home Medications Medication Instructions Recorded Confirmed Type amlodipine 2.5 mg tablet 2.5 mg PO BID #180 tabs 07/30/23 10/23/23 Rx betamethasone valerate 0.1 % 1 applic topical BID psoriasis 07/30/23 10/23/23 Rx topical ointment #15 grams montelukast 10 mg tablet 10 mg PO DAILY #30 tabs 07/30/23 10/23/23 Rx fluticasone 250 mcg-salmeterol 50 2 ea inhalation BID #60 ea 08/22/23 10/23/23 Rx mcg/dose blistr powdr for inhalation Allergies Allergy/AdvReac Type Severity Reaction Status Date / Time No Known Allergies Allergy Verified 10/23/23 11:21 Exam Vital Signs (past 8 hours): - 10/23/23 11:30 Temperature 97.5 F L Pulse Rate 87 Respiratory Rate 17 Blood Pressure 152/96 H Pulse Oximetry 97 Oxygen Delivery Method Room Air Oxygen Delivery Method Room Air Const General: healthy appearing Assessment & Plan Assessment and plan (1) Colon cancer screening: Status: Acute Plan Rahul is a 43-year-old man who is here for a colonoscopy for colon cancer screening. We reviewed the risks and benefits and he would like to proceed.
--- NOTE | 2023-10-23 12:42 | PM.OP.COLON ---
Operative Date/Time/Diagnoses Date of procedure: 10/23/23 Time of procedure: 12:42 Pre-op diagnosis: Colon cancer screening Post-op diagnosis: same Procedure & Clinicians Study performed: Colonoscopy Same procedure as scheduled: Yes Surgeon: Fitz Kay Procedure Notes Procedure in detail: Surgeon: Fitz Kay MD Anesthesia: Bola Boles CRNA Procedure: The patient was brought to the endoscopy suite, placed in left lateral decubitus position. The patient was connected to monitoring devices. A time-out was performed. Sedation was administered. Once the patient was adequately sedated, a digital rectal exam was performed and was normal. The scope was then inserted and advanced to the cecum where the appendiceal orifice was identified and photographed. The scope was then slowly withdrawn over greater than 6 minutes. The mucosa was thoroughly inspected. No abnormalities were found. The scope was retroflexed in the rectum. No abnormalities were seen. The scope was straightened and removed. The patient was awakened and brought to recovery. Scope withdrawal time: 9 minutes Sedation time: 12 minutes EBL: 0 Findings: Normal colon Post-procedure Recommendations: Colonoscopy in 10 years Disposition: PACU
[2023-10-23 12:43] VITALS: BP 112/79; PULSE 90; RESP 16; TEMP 36.1; O2SAT 96
[2023-10-23 12:48] VITALS: BP 105/72; PULSE 80; RESP 12; O2SAT 95
[2023-10-23 12:53] VITALS: BP 103/70; PULSE 79; RESP 16; O2SAT 95
[2023-10-23 12:57] VITALS: BP 105/82; PULSE 78; RESP 16; TEMP 36.2; O2SAT 96
[2023-10-23 13:40] VITALS: BP 162/100; PULSE 100; RESP 16; TEMP 36.9; O2SAT 99
--- NOTE | 2023-10-23 13:41 | SUR.PHASEII ---
unable to discharge at this time. son is 30 mins out. will hold pt till he arrives.
== END 2023-10-23 13:10 | disposition home or self-care (01) ==
PROVIDERS: PCP Family Medicine; Referring Provider Surgery; Visit Provider Surgery
PROC: 0DJD8ZZ Inspection of Lower Intestinal Tract, Via Natural or Artificial Opening Endoscopic (ICD-10-PCS; CPT 45378; principal; 2023-10-23 12:15)
DX: Z12.11 Encounter for screening for malignant neoplasm of colon (principal)
CPT/HCPCS: 45378; J0330; J1885; J2405; J2704